=== PATIENT | female | born 2000 ===

== ENCOUNTER 2022-11-03 22:00 | Inpatient (IN) ==
--- NOTE | 2022-11-03 22:50 | Emergency Department Note ---
History of Present Illness General Chief complaint: Overdose (Intentional) Stated complaint: OVERDOSE Time Seen by Provider: 11/03/22 22:30 Source: patient and RN notes reviewed Mode of arrival: EMS Limitations: no limitations History of Present Illness This patient is 22-year-old female who, and came in after taking intentional overdose. She tells me she took at 915 she took 25 pills which were Advil but also some Tylenol. She does not know what doses they were. She adamantly denies any other medications. Denies drugs or alcohol. She did not vomit she has minimal nausea. When asked her why she took it she says "I do not know". She does have a history of overdose 4 years ago when she took some pain medication. Denies . no chest pain or shortness breath or abdominal pain. She has had a lot of stress with school recently. She does vape. She is not on any other medications besides a migraine medication which she denies she took any extra tonight. Home Medications Medication Instructions Recorded Confirmed Type Unknown Med For Migraine Rankin 1 dose PO DIRECTED PRN Migraine 11/04/22 11/04/22 History Headache Allergies Allergy/AdvReac Type Severity Reaction Status Date / Time No Known Allergies Allergy Verified 11/03/22 23:02 Past Med/Surg History Social History Smoking Status: Current every day smoker Preferred Language: Citizen Of [place] Feels Safe at Home: Yes Gender Identity: Female Immunizations: Past medical historymigraines. Iron deficient. 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 Review of Systems A total of 10 systems reviewed and were otherwise negative Physical Exam Vital Signs Vital Signs - 24 hr 11/03/22 22:07 11/03/22 22:07 11/03/22 22:39 Temperature 36.9 C Temperature Source Temporal Artery Scan Pulse Rate 71 Respiratory Rate 20 Blood Pressure 124/87 Blood Pressure Mean 99 Pulse Oximetry 99 98 98 Oxygen Delivery Method Room Air Room Air Room Air Sepsis Recent Fever Within 48 Hours No Sepsis New/Unexplained Change in Mental Status N/A Sepsis Action Taken by Nursing No Action Required 11/03/22 22:55 11/03/22 22:55 11/03/22 23:00 Temperature Temperature Source Pulse Rate 75 74 77 Respiratory Rate 18 18 Blood Pressure Blood Pressure Mean Pulse Oximetry 100 100 Oxygen Delivery Method Room Air Room Air Sepsis Recent Fever Within 48 Hours Sepsis New/Unexplained Change in Mental Status Sepsis Action Taken by Nursing 11/03/22 23:30 11/04/22 00:00 11/04/22 00:30 Temperature Temperature Source Pulse Rate 74 77 63 Respiratory Rate 16 22 20 Blood Pressure Blood Pressure Mean Pulse Oximetry 100 100 98 Oxygen Delivery Method Room Air Room Air Room Air Sepsis Recent Fever Within 48 Hours Sepsis New/Unexplained Change in Mental Status Sepsis Action Taken by Nursing 11/04/22 00:36 11/04/22 01:00 Temperature Temperature Source Pulse Rate 75 64 Respiratory Rate 22 24 Blood Pressure 122/83 117/69 Blood Pressure Mean 96 85 Pulse Oximetry 100 99 Oxygen Delivery Method Room Air Room Air Sepsis Recent Fever Within 48 Hours Sepsis New/Unexplained Change in Mental Status Sepsis Action Taken by Nursing General: Well developed well nourished slender young female who appears in no acute distress, breathing comfortably on room air. Normal speech. She has poor eye contact. HEENT: Normal cephalic atraumatic. Pupils are equal round and reactive to light. Sclera are anicteric. Extraocular movements are intact. Oropharynx is pink with moist mucous membranes. No swelling of the mouth lips or tongue. Neck: Supple with a midline trachea. No meningeal signs or stiffness, no JVD or bruits. No Stridor. Chest: Clear to auscultation bilaterally. No wheezes or rhonchi. No increased work of breathing. Heart: Regular rate and rhythm without murmurs or gallops. Abdomen: Soft nontender, nondistended without rebound guarding or rigidity. Extremities: No cyanosis clubbing or edema. No calf tenderness or assymetry Spine/Back. Non tender to palpation. No CVA tenderness Skin: Good turgor without rashes. Neurologic exam: Cranial nerves two through 12 are intact. Motor and sensation are intact and symmetrical throughout. Psych: Her affect is flattened but answers questions appropriately. She answers vaguely when asked why she took this overdose. Medical Decision Making Differential Diagnosis Overdose, depression, suicidal ideations, anxiety, toxicologic, metabolic Medical Records Attestation: I reviewed the patient's medical records. Home Medications Current Medication List: was personally reviewed by me Laboratory Data Attestation: I reviewed the patient's lab results. 11/03/22 23:06 11/03/22 23:06 Lab Results 11/03/22 11/03/22 11/03/22 Range/Units 22:37 22:37 22:50 WBC (4.8-10.8) K/ul RBC (4.20-5.40) M/uL Hgb (12.0-16.0) g/dl Hct (37.0-47.0) % MCV (80.0-100.0) fL MCH (25.0-34.0) pg MCHC (32.0-36.0) g/dL RDW Std Deviation (36.4-46.3) fL RDW Coeff of Sky (11.5-14.5) % Plt Count (130-400) K/uL MPV (9.4-12.4) fL Immature Gran % (Auto) % Neut % (Auto) % Lymph % (Auto) % [place] % (Auto) % Eos % (Auto) % Baso % (Auto) % Neut # (Auto) (1.40-6.50) K/uL Lymph # (Auto) (1.2-3.4) K/uL [place] # (Auto) (0.11-0.59) K/uL Eos # (Auto) (0-0.50) K/uL Baso # (Auto) (0-0.2) K/uL Immature Gran # (Auto) (0.01-0.20) K/uL PT (9.0-12.0) Seconds INR (0.9-1.1) APTT (21.0-31.0) Seconds PTT Ratio Sodium (136-145) mmol/L Potassium (3.5-5.1) mmol/L Chloride (98-107) mmol/L Carbon Dioxide (21-32) mmol/L Anion Gap (3-11) BUN (6-23) mg/dl Creatinine (0.6-1.2) mg/dl Est Cr Clr Drug Dosing ml/min Est GFR ( Amer) ml/min Est GFR (Non-Af Amer) ml/min BUN/Creatinine Ratio (10-20) Glucose (70-99(Fasting)) mg/dl Calcium (8.6-10.3) mg/dl Magnesium (1.7-2.4) mg/dl Total Bilirubin (0.2-1.0) mg/dl AST (13-39) U/L ALT (7-52) U/L Alkaline Phosphatase (34-104) U/L Total Protein (6.0-8.3) gm/dl Albumin (3.4-5.0) gm/dl Globulin (2.5-4.0) gm/dl Albumin/Globulin Ratio (0.9-2) HCG, Qual (Negative) Urine Color Yellow Urine Appearance Clear (Clear) Urine pH 5.5 (4.5-7.5) Ur Specific [place] 1.021 (1.000-1.030) Urine Protein Negative (Negative) Urine Glucose (UA) Negative (Negative) Urine Ketones Negative (Negative) Urine Blood 3+ H (Negative) Urine Nitrite Negative (Negative) Urine Bilirubin Negative (Negative) Urine Urobilinogen Negative (Negative) Ur Leukocyte Esterase Negative (Negative) Urine WBC (Auto) 1-5 (0-5) /hpf Urine RBC (Auto) 10-30 H (0-4) /hpf U Hyaline Cast (Auto) 1-5 (0-5) /lpf U Epithel Cells (Auto) >30 H (0-5) /lpf Urine Bacteria (Auto) Negative (Negative) Salicylates (3.0-30) mg/dl Urine Opiates Screen Neg (Neg) Ur Methadone, Qual Neg (Neg) Acetaminophen (10-30) ug/ml Urine Barbiturates Neg (Neg) Ur Phencyclidine (PCP) Neg (Neg) U Amphetamin/Meth Scrn Neg (Neg) MDMA (Ecstasy) Screen Neg (Neg) U Benzodiazepines Scrn Neg (Neg) Ur Cocaine Metabolite Neg (Neg) U Marijuana (THC) Screen Pos H (Neg) Ethyl Alcohol mg/dL (<10.0) mg/dl SARS-CoV-2, RNA, NAAT NEGATIVE (NEGATIVE) 11/03/22 11/03/22 11/03/22 Range/Units 23:06 23:06 23:06 WBC 6.44 (4.8-10.8) K/ul RBC 5.17 (4.20-5.40) M/uL Hgb 13.3 (12.0-16.0) g/dl Hct 42.2 (37.0-47.0) % MCV 81.6 (80.0-100.0) fL MCH 25.7 (25.0-34.0) pg MCHC 31.5 L (32.0-36.0) g/dL RDW Std Deviation 39.8 (36.4-46.3) fL RDW Coeff of Sky 13.5 (11.5-14.5) % Plt Count 259 (130-400) K/uL MPV 10.6 (9.4-12.4) fL Immature Gran % (Auto) 0.2 % Neut % (Auto) 49.7 % Lymph % (Auto) 35.6 % [place] % (Auto) 9.9 % Eos % (Auto) 4.3 % Baso % (Auto) 0.3 % Neut # (Auto) 3.20 (1.40-6.50) K/uL Lymph # (Auto) 2.29 (1.2-3.4) K/uL [place] # (Auto) 0.64 H (0.11-0.59) K/uL Eos # (Auto) 0.28 (0-0.50) K/uL Baso # (Auto) 0.02 (0-0.2) K/uL Immature Gran # (Auto) 0.01 (0.01-0.20) K/uL PT 10.9 (9.0-12.0) Seconds INR 1.0 (0.9-1.1) APTT 27.6 (21.0-31.0) Seconds PTT Ratio 1.0 Sodium 135 L (136-145) mmol/L Potassium 3.6 (3.5-5.1) mmol/L Chloride 103 (98-107) mmol/L Carbon Dioxide 27 (21-32) mmol/L Anion Gap 5 (3-11) BUN 10 (6-23) mg/dl Creatinine 0.82 (0.6-1.2) mg/dl Est Cr Clr Drug Dosing 120.9 ml/min Est GFR ( Amer) 119.4 ml/min Est GFR (Non-Af Amer) 103.0 ml/min BUN/Creatinine Ratio 12.2 (10-20) Glucose 85 (70-99(Fasting)) mg/dl Calcium 9.2 (8.6-10.3) mg/dl Magnesium 1.8 (1.7-2.4) mg/dl Total Bilirubin 0.3 (0.2-1.0) mg/dl AST 17 (13-39) U/L ALT 8 (7-52) U/L Alkaline Phosphatase 45 (34-104) U/L Total Protein 7.8 (6.0-8.3) gm/dl Albumin 4.0 (3.4-5.0) gm/dl Globulin 3.8 (2.5-4.0) gm/dl Albumin/Globulin Ratio 1.1 (0.9-2) HCG, Qual (Negative) Urine Color Urine Appearance (Clear) Urine pH (4.5-7.5) Ur Specific [place] (1.000-1.030) Urine Protein (Negative) Urine Glucose (UA) (Negative) Urine Ketones (Negative) Urine Blood (Negative) Urine Nitrite (Negative) Urine Bilirubin (Negative) Urine Urobilinogen (Negative) Ur Leukocyte Esterase (Negative) Urine WBC (Auto) (0-5) /hpf Urine RBC (Auto) (0-4) /hpf U Hyaline Cast (Auto) (0-5) /lpf U Epithel Cells (Auto) (0-5) /lpf Urine Bacteria (Auto) (Negative) Salicylates (3.0-30) mg/dl Urine Opiates Screen (Neg) Ur Methadone, Qual (Neg) Acetaminophen (10-30) ug/ml Urine Barbiturates (Neg) Ur Phencyclidine (PCP) (Neg) U Amphetamin/Meth Scrn (Neg) MDMA (Ecstasy) Screen (Neg) U Benzodiazepines Scrn (Neg) Ur Cocaine Metabolite (Neg) U Marijuana (THC) Screen (Neg) Ethyl Alcohol mg/dL (<10.0) mg/dl SARS-CoV-2, RNA, NAAT (NEGATIVE) 11/03/22 11/03/22 11/03/22 Range/Units 23:06 23:06 23:06 WBC (4.8-10.8) K/ul RBC (4.20-5.40) M/uL Hgb (12.0-16.0) g/dl Hct (37.0-47.0) % MCV (80.0-100.0) fL MCH (25.0-34.0) pg MCHC (32.0-36.0) g/dL RDW Std Deviation (36.4-46.3) fL RDW Coeff of Sky (11.5-14.5) % Plt Count (130-400) K/uL MPV (9.4-12.4) fL Immature Gran % (Auto) % Neut % (Auto) % Lymph % (Auto) % [place] % (Auto) % Eos % (Auto) % Baso % (Auto) % Neut # (Auto) (1.40-6.50) K/uL Lymph # (Auto) (1.2-3.4) K/uL [place] # (Auto) (0.11-0.59) K/uL Eos # (Auto) (0-0.50) K/uL Baso # (Auto) (0-0.2) K/uL Immature Gran # (Auto) (0.01-0.20) K/uL PT (9.0-12.0) Seconds INR (0.9-1.1) APTT (21.0-31.0) Seconds PTT Ratio Sodium (136-145) mmol/L Potassium (3.5-5.1) mmol/L Chloride (98-107) mmol/L Carbon Dioxide (21-32) mmol/L Anion Gap (3-11) BUN (6-23) mg/dl Creatinine (0.6-1.2) mg/dl Est Cr Clr Drug Dosing ml/min Est GFR ( Amer) ml/min Est GFR (Non-Af Amer) ml/min BUN/Creatinine Ratio (10-20) Glucose (70-99(Fasting)) mg/dl Calcium (8.6-10.3) mg/dl Magnesium (1.7-2.4) mg/dl Total Bilirubin (0.2-1.0) mg/dl AST (13-39) U/L ALT (7-52) U/L Alkaline Phosphatase (34-104) U/L Total Protein (6.0-8.3) gm/dl Albumin (3.4-5.0) gm/dl Globulin (2.5-4.0) gm/dl Albumin/Globulin Ratio (0.9-2) HCG, Qual Negative (Negative) Urine Color Urine Appearance (Clear) Urine pH (4.5-7.5) Ur Specific [place] (1.000-1.030) Urine Protein (Negative) Urine Glucose (UA) (Negative) Urine Ketones (Negative) Urine Blood (Negative) Urine Nitrite (Negative) Urine Bilirubin (Negative) Urine Urobilinogen (Negative) Ur Leukocyte Esterase (Negative) Urine WBC (Auto) (0-5) /hpf Urine RBC (Auto) (0-4) /hpf U Hyaline Cast (Auto) (0-5) /lpf U Epithel Cells (Auto) (0-5) /lpf Urine Bacteria (Auto) (Negative) Salicylates < 3.0 L (3.0-30) mg/dl Urine Opiates Screen (Neg) Ur Methadone, Qual (Neg) Acetaminophen < 3 L (10-30) ug/ml Urine Barbiturates (Neg) Ur Phencyclidine (PCP) (Neg) U Amphetamin/Meth Scrn (Neg) MDMA (Ecstasy) Screen (Neg) U Benzodiazepines Scrn (Neg) Ur Cocaine Metabolite (Neg) U Marijuana (THC) Screen (Neg) Ethyl Alcohol mg/dL < 10.0 (<10.0) mg/dl SARS-CoV-2, RNA, NAAT (NEGATIVE) 11/04/22 Range/Units 01:30 WBC (4.8-10.8) K/ul RBC (4.20-5.40) M/uL Hgb (12.0-16.0) g/dl Hct (37.0-47.0) % MCV (80.0-100.0) fL MCH (25.0-34.0) pg MCHC (32.0-36.0) g/dL RDW Std Deviation (36.4-46.3) fL RDW Coeff of Sky (11.5-14.5) % Plt Count (130-400) K/uL MPV (9.4-12.4) fL Immature Gran % (Auto) % Neut % (Auto) % Lymph % (Auto) % [place] % (Auto) % Eos % (Auto) % Baso % (Auto) % Neut # (Auto) (1.40-6.50) K/uL Lymph # (Auto) (1.2-3.4) K/uL [place] # (Auto) (0.11-0.59) K/uL Eos # (Auto) (0-0.50) K/uL Baso # (Auto) (0-0.2) K/uL Immature Gran # (Auto) (0.01-0.20) K/uL PT (9.0-12.0) Seconds INR (0.9-1.1) APTT (21.0-31.0) Seconds PTT Ratio Sodium (136-145) mmol/L Potassium (3.5-5.1) mmol/L Chloride (98-107) mmol/L Carbon Dioxide (21-32) mmol/L Anion Gap (3-11) BUN (6-23) mg/dl Creatinine (0.6-1.2) mg/dl Est Cr Clr Drug Dosing ml/min Est GFR ( Amer) ml/min Est GFR (Non-Af Amer) ml/min BUN/Creatinine Ratio (10-20) Glucose (70-99(Fasting)) mg/dl Calcium (8.6-10.3) mg/dl Magnesium (1.7-2.4) mg/dl Total Bilirubin (0.2-1.0) mg/dl AST (13-39) U/L ALT (7-52) U/L Alkaline Phosphatase (34-104) U/L Total Protein (6.0-8.3) gm/dl Albumin (3.4-5.0) gm/dl Globulin (2.5-4.0) gm/dl Albumin/Globulin Ratio (0.9-2) HCG, Qual (Negative) Urine Color Urine Appearance (Clear) Urine pH (4.5-7.5) Ur Specific [place] (1.000-1.030) Urine Protein (Negative) Urine Glucose (UA) (Negative) Urine Ketones (Negative) Urine Blood (Negative) Urine Nitrite (Negative) Urine Bilirubin (Negative) Urine Urobilinogen (Negative) Ur Leukocyte Esterase (Negative) Urine WBC (Auto) (0-5) /hpf Urine RBC (Auto) (0-4) /hpf U Hyaline Cast (Auto) (0-5) /lpf U Epithel Cells (Auto) (0-5) /lpf Urine Bacteria (Auto) (Negative) Salicylates (3.0-30) mg/dl Urine Opiates Screen (Neg) Ur Methadone, Qual (Neg) Acetaminophen < 3 L (10-30) ug/ml Urine Barbiturates (Neg) Ur Phencyclidine (PCP) (Neg) U Amphetamin/Meth Scrn (Neg) MDMA (Ecstasy) Screen (Neg) U Benzodiazepines Scrn (Neg) Ur Cocaine Metabolite (Neg) U Marijuana (THC) Screen (Neg) Ethyl Alcohol mg/dL (<10.0) mg/dl SARS-CoV-2, RNA, NAAT (NEGATIVE) Imaging Data Attestation: I personally reviewed and interpreted this imaging study as follows: ECG Data Attestation: I personally reviewed and interpreted this ECG as follows: Indication: + toxicologic Rate (beats per minute): 77 Rhythm: + normal sinus ECG Intervals/blocks: + Normal QRS, + Normal QT and + Normal UT ECG [place]: + Normal ECG ST segments: + Normal ST segments ECG Findings: no PACs or no PVCs MDM Narrative This patient comes in as described above. She took an overdose at approximately 9:15 PM. That was over an hour prior to arrival. She took Advil but also said there is some Tylenol in it she is not sure what doses they were. She has stable vital signs she is awake alert and orient x3 she answers all questions appropriately her at affect is flattened. IV access was established and she was hydrated with 1 L IV normal saline bolus. she was placed on a monitor car operator full toxicologic/metabolic work-up was obtained. EKG does not show any prolonged QT or prolonged QRS. She has normal intervals. She has no white count or fever discussed infection. she has no significant electrolyte or metabolic abnormalities. Alcohol was negative. She has normal renal function and liver function. Coagulation studies were normal. Aspirin and Tylenol levels were negative. The Tylenol level was less than 4 hours and therefore I ordered a 4-hour level 1 to be done at 1230. She estimates she took the pills between 915 and 930. I did on her and told her this is the plan and she was cooperative. I also told her that if the 4-hour level looks good she will be medically cleared and will have to be seen by mental health she also acknowledges this as well. Her 4-hour Tylenol was also less than 3. The case management team tells me that when they talk to the police they did not find any Tylenol bottles at the scene just ibuprofen. The patient has remained stable and she is asymptomatic and looks well. She has been medically cleared. She was a further evaluated by our psychiatric case management team. She will be s igned out for Dr. Gonzalez at shift change we will follow-up on the recommendations. Continuous cardiac monitoring: Orders placed in EMR for continuous cardiac monitoring: Upon my evaluation she was noted to be in normal sinus rhythm with a rate of 70 Impression & Plan Drug overdose, Not currently , Suicidal ideations, Intentional overdose, Lab test negative for COVID-19 virus Discharge Plan Visit Data Chief Complaint: Overdose (Intentional) Stated Complaint: OVERDOSE ED Provider: Jt Hubbard Discharge Problem: Drug overdose, Not currently , Suicidal ideations, Intentional overdose, Lab test negative for COVID-19 virus Forms Stand Alone Forms: My [facility], Suicide Prevention Resources Prescriptions Prescriptions: No Action Unknown Med For Migraine Rankin 1 dose PO DIRECTED PRN (Reason: Migraine Headache) Rx Instructions: PT DID NOT KNOW NAME OR DOSE, UNABLE TO VERIFY AT THIS TIME. Referrals Referrals: PCP,NO [Primary Care Provider] -
[2022-11-03 23:50] LABS: Albumin Globulin Ratio 1.1 (0.9-2); BUN Creatinine Ratio 12.2 (10-20); Bilirubin,Total 0.3 mg/dl (0.2-1.0); Calcium 9.2 mg/dl (8.6-10.3); Creatinine Clr Calc Pharmacy 120.9 ml/min; Est GFR (African American) 119.4 ml/min; Globulin 3.8 gm/dl (2.5-4.0); Magnesium 1.8 mg/dl (1.7-2.4); Potassium 3.6 mmol/L (3.5-5.1); Total Protein 7.8 gm/dl (6.0-8.3)
[2022-11-03 23:53] LABS: Pregnancy Test, Serum Negative (Negative)
[2022-11-04] LABS: Basophils # (auto) 0.02 K/uL (0-0.2); Basophils % (auto) 0.3 %; Eosinophils # (auto) 0.28 K/uL (0-0.50); Eosinophils % (auto) 4.3 %; Hematocrit (blood only) 42.2 % (37.0-47.0); Hemoglobin 13.3 g/dl (12.0-16.0); Immature Granulocytes # (auto) 0.01 K/uL (0.01-0.20); Immature Granulocytes % (auto) 0.2 %; Lymphocytes # (auto) 2.29 K/uL (1.2-3.4); Lymphocytes % (auto) 35.6 %; Mean Corpuscular Hemoglobin 25.7 pg (25.0-34.0); Mean Corpuscular Hgb Conc 31.5 g/dL (32.0-36.0); Mean Corpuscular Volume 81.6 fL (80.0-100.0); Mean Platelet Volume 10.6 fL (9.4-12.4); Monocytes # (auto) 0.64 K/uL (0.11-0.59); Monocytes % (auto) 9.9 %; Neutrophils % (auto) 49.7 %; Platelet Count 259 K/uL (130-400); RDW Coefficient of Variation 13.5 % (11.5-14.5); RDW Standard Deviation 39.8 fL (36.4-46.3); Red Blood Count 5.17 M/uL (4.20-5.40); White Blood Count 6.44 K/ul (4.8-10.8)
[2022-11-04 00:14] LABS: Partial Thromboplastin Time 27.6 Seconds (21.0-31.0); Prothrombin Time 10.9 Seconds (9.0-12.0)
[2022-11-04 00:15] LABS: Amphetamines+Metham, Urine Neg (Neg); Barbiturates, Urine Neg (Neg); Benzodiazepine, Urine Neg (Neg); Cocaine, Urine Neg (Neg); MDMA (Ecstacy), Urine Neg (Neg); Methadone, Urine Neg (Neg); Opiate, Urine Neg (Neg); Phencyclidine, Urine Neg (Neg)
[2022-11-04 00:26] LABS: Appearance Urine Clear (Clear); Bacteria Urine Automated Negative (Negative); Bilirubin Urine Negative (Negative); Blood Urine 3+ (Negative); Color Urine Yellow; Epithelial Cell Urine Auto >30 /lpf (0-5); Glucose Urine UA Negative (Negative); Ketones Urine Negative (Negative); Leukocyte Esterase Urine Negative (Negative); Nitrite Urine Negative (Negative); Protein Urine Negative (Negative); Specific Gravity Urine 1.021 (1.000-1.030); Urobilinogen Urine Negative (Negative); pH Urine 5.5 (4.5-7.5)
[2022-11-04 00:48] LABS: Acetaminophen < 3 ug/ml (10-30); Salicylate < 3.0 mg/dl (3.0-30)
--- NOTE | 2022-11-04 06:33 | Emergency Department Note ---
ED Visit Note I received this patient in signout at the change of shift from Dr. Hubbard. Patient is pending a mental health bed search. Case has been signed out to Dr. Lofton at the change of shift pending final disposition. .
--- NOTE | 2022-11-04 09:27 | Emergency Department Note ---
ED Visit Note The patient was originally placed in observation on 11/03/2022 at 2200 hrs. to establish medical clearance and determine the patients ultimate disposition. It had been determined that the patient required inpatient psychiatric care and we have been awaiting an available bed. That bed has now been obtained at [address]. and the patient is being transferred out by secure transport. I had a [id number] visit with the patient on the day of discharge. Total time in the discharge of this patient was 11-1/2 hours. .
[2022-11-04] MEDS ORDERED: SODIUM CHLORIDE 0.65% NA SOLN 45 ML (OCEAN) PRN (12:43)
[2022-11-04] MEDS ORDERED: BISMUTH SUBSALICYLATE LIQD 236 ML PO PRN (12:43)
[2022-11-04] MEDS ORDERED: ACETAMINOPHEN 325 MG TAB PO PRN (12:43)
[2022-11-04] MEDS ORDERED: hydrOXYzine HCl 25 MG TAB PO PRN ×2 (12:43)
[2022-11-04] MEDS ORDERED: ALUMINUM/MAGNESIUM SUSP 30 ML UDC PO PRN (12:43)
[2022-11-04] MEDS ORDERED: MAGNESIUM HYDROXIDE SUSP 30 ML UDC PO PRN (12:43)
--- NOTE | 2022-11-04 15:07 | History & Physical ---
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 Diagnostically consistent with unspecified depression, current symptoms do not seem to rise to level of major depressive disorder though unclear if possibly some minimization due to not wanting to be in the hospital and certainly met criteria for MDD as recently as September; seems major depressive symptoms had been improving but flared in context of academic pressures of final exam difficulty. She is currently deemed in need of psychiatric hospitalization for diagnostic clarification, safety and stabilization, medication management and development of further coping skills. She signed a 72 hour notice shortly after admission. Discussed medication treatment options in detail including SSRIs and Wellbutrin. Discussed risks, benefits and alternatives. She is going to consider the options and discuss them with her father but is leaning toward considering Wellbutrin. Reviewed side effects for both SSRIs and Wellbutrin. (1) Depression, unspecified: (2) Suicide attempt by drug ingestion: Plan 11/04/2022: The patient was admitted to the [facility] ([facility] mental health unit) on q15 min checks (behavioral with suicide precautions) for safety. The patient will participate in group, recreational, and milieu therapies and will be offered additional individual and family sessions as clinically appropriate. -Consider SSRI vs Wellbutrin initiation tomorrow morning after she decides what medication she would like to try -Confirmed via [facility] pharmacy prior to admission topirimate 75mg daily for migraines, last filled 04/2023 for 90 tabs; states she hasn't been taking this recently Inventory Assets Strengths: supportive relationships, willing to get treatment Needs: safety and stabilization, medication adjustment, additional coping skills, increased outpatient services Suicide Risk Level Suicide Risk Level: High-Moderate (q15 min suicide checks) (High-Moderate due to severe depression with SI with plan prior to admission but feels safe in the hospital, able to safety contract and agrees to let nursing/staff know should they develop plan, intent or feel unable to remain safe. ) Risk Factors Assessment Do You Have Access To A Gun?: No Mental Health Diagnoses: Yes Previous Attempt: Yes Protective Factors Assessment Employed: No Stable Relationships: Yes Supportive Family: Yes Psychiatric History Identifying Data HAYDEN CONRAD is a 22-year-old woman and international [employer] student from [place] who currently lives in on-campus dorms, has no formal psychiatric history, and was admitted on 11/04/22 09:33 on a 201 voluntary commitment for suicide attempt via overdose. Chief Complaint "I was triggered". History of Present Illness Hayden called 911 and was brought to the hospital after taking an overdose of acetaminophen and ibuprofen of approximately 25 tabs of unknown strength and unknown combination. She states this was due to recent psychosocial stressors including academic difficulty this semester and not liking [employer] or feeling as though it has been a good fit for her. She feels the suicide attempt was impulsive and occurred after "a trigger" of learning via online portal that she had failed a final exam in one of her courses. She already had a headache and had taken some over the counter medications (Advil and Tylenol) to treat this and impulsively decided to take more with the thought that if she then so be it. However, after taking about 25 of the tabs she got worried and called 911 to get help. She endorses current depressive symptoms including decreased energy, variable motivation but denies anhedonia, no changes in concentration, no sleep changes (8 hours per night), stable appetite and no recent hopelessness/helplessness nor self-guilt. However, she reports she was depressed from July-September which lead to missing class, no motivation, social isolation, decreased appetite and significant academic difficulty and fell behind in her classes. She denies any current or history of anxiety or panic attacks. She endorses PTSD symptoms of chronic sense of detachment since past trauma but denies any sleep terrors/ flashbacks/avoidance/emotional lability/hypervigilance . She is not currently prescribed any psychiatric medications. Psychiatric ROS notable for no current nor history of symptoms of carla, psychosis, OCD, eating disorder nor self-harm. Past Psychiatric History Current Psychiatric Diagnosis: MDD Outpatient Services: therapist Josefa via [employer] had been seeing weekly until mid-September Previous Psych Admissions: n/a Do You Have Access To A Gun?: No History of Previous Suicide Attempt: Yes Describe Attempts in the Past: OD via over the counter medications 4 years ago was seen in the ED Past Medication Trials: none Past Head Trauma/Neuro History History of Concussion/Seizure: No Allergies Allergy/AdvReac Type Severity Reaction Status Date / Time No Known Allergies Allergy Verified 11/04/22 14:52 Home Medications Medication Instructions Recorded Confirmed Type Unknown Med For Migraine Rank[place] 1 dose PO DIRECTED PRN Migraine 11/04/22 11/04/22 History Headache Family History Family History of: Depression (maternal side) and Anxiety (maternal side) Alcohol History Hx of Alcohol Use Over the Past 12 Months: No AUDIT Total Score: 3 States she doesn't drink alcohol Smoking Use Have You Smoked or Used Tobacco Products in the Last 30 Days: No tobacco type: e-cigarettes Smoking Status: Current some day smoker (for the last two weeks) Substance History Hx of Prescription Med Misuse Over the Past 12 Months: No Hx of Over the Counter Med Misuse Over the Past 12 Months: No Hx of Inhalent Misuse Over the Past 12 Months: No Hx of Organic Substance Use Over the Past 12 Months: Yes (weekly THC via smoking) Hx of Illegal Substances/Street Drug Use Over Past 12 Months: No Problems as a Result of Past Substance Use: None Identified uses cannabis weekly, states there is nothing she likes about it, doesn't like potential health effects Personal History Living Arrangements: Dorm Childhood: Raised in [place], parents are and both live there. She has two older sisters. 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 ) Marital Status: Single Number Of Children: n/a Beliefs That Will Affect Care: None Current Legal Problems: No Hx Legal Problems: No Hx Traumatic Life Events: Yes Patient History Medical History Migraine Social History (Updated 11/04/22 @ 14:54 by Saige Up MD) Smoking Status: Current some day smoker (for the last two weeks) Tobacco Type: E-cigarettes / Vaping Preferred Language: Faroese Communication Ability: Effective Towel Sorter Required: No Beliefs That Will Affect Care: None Feels Safe at Home: Yes Gender Identity: Female Assistive Devices: None Review of Systems Review of Systems: All systems reviewed & are unremarkable except as noted in HPI & below Physical Exam Psychiatric: Orientation: alert and oriented x 3 Apperance: appropriately dressed and appropriately groomed Eye Contact: good eye contact Motor Behavior: no abnormal motor movements Speech: normal rate/rhythm/volume of speech Affect: + constricted affect Mood: + depressed mood and + irritable mood Thought Process: goal directed thought process Thought Content: reality based without delusions Suicidal Thoughts: denies suicidal thoughts (but s/p overdose), denies suicidal plan and denies suicidal intent Homicidal Thoughts: denies homicidal thoughts Hallucinations: no auditory hallucinations and no visual hallucinations Cognition: recent memory grossly intact, remote memory grossly intact, attention grossly intact and language grossly intact Estimated Intelligence: consistent with education level Insight: + fair insight Judgment: + limited judgement Vital Signs (Past 24 Hours): Last Vital Signs Temp 36.8 C 11/04/22 12:31 Pulse 65 11/04/22 12:31 Resp 16 11/04/22 12:31 BP 124/85 11/04/22 12:31 Pulse Ox 100 11/04/22 12:31 O2 Del Method Room Air 11/04/22 12:31 Exam Statement: A physical exam was performed in the ED by Dr. Hubbard for the purposes of medical clearance. I accept that physical as correct and adequate for the purposes of the inpatient physical exam. Results & Data ([facility]) Laboratory Results Laboratory Results - last 24 hr 11/03/22 11/03/22 11/03/22 22:37 22:37 22:37 WBC RBC Hgb Hct MCV MCH MCHC RDW Std Deviation RDW Coeff of Sky Plt Count MPV Immature Gran % (Auto) Neut % (Auto) Lymph % (Auto) [place] % (Auto) Eos % (Auto) Baso % (Auto) Neut # (Auto) Lymph # (Auto) [place] # (Auto) Eos # (Auto) Baso # (Auto) Immature Gran # (Auto) PT INR APTT PTT Ratio Sodium Potassium Chloride Carbon Dioxide Anion Gap BUN Creatinine Est Cr Clr Drug Dosing Est GFR ( Amer) Est GFR (Non-Af Amer) BUN/Creatinine Ratio Glucose Calcium Magnesium Total Bilirubin AST ALT Alkaline Phosphatase Total Protein Albumin Globulin Albumin/Globulin Ratio HCG, Qual Urine Color Yellow Urine Appearance Clear Urine pH 5.5 Ur Specific [place] 1.021 Urine Protein Negative Urine Glucose (UA) Negative Urine Ketones Negative Urine Blood 3+ H Urine Nitrite Negative Urine Bilirubin Negative Urine Urobilinogen Negative Ur Leukocyte Esterase Negative Urine WBC (Auto) 1-5 Urine RBC (Auto) 10-30 H U Hyaline Cast (Auto) 1-5 U Epithel Cells (Auto) >30 H Urine Bacteria (Auto) Negative Salicylates Urine Opiates Screen Neg Ur Methadone, Qual Neg Acetaminophen Urine Barbiturates Neg Ur Phencyclidine (PCP) Neg U Amphetamin/Meth Scrn Neg MDMA (Ecstasy) Screen Neg U Benzodiazepines Scrn Neg Ur Cocaine Metabolite Neg U Marijuana (THC) Screen Pos H U Marijuana THC Carboxy Pending Drug Screen Comment Pending Ethyl Alcohol mg/dL SARS-CoV-2, RNA, NAAT 11/03/22 11/03/22 11/03/22 22:50 23:06 23:06 WBC 6.44 RBC 5.17 Hgb 13.3 Hct 42.2 MCV 81.6 MCH 25.7 MCHC 31.5 L RDW Std Deviation 39.8 RDW Coeff of Sky 13.5 Plt Count 259 MPV 10.6 Immature Gran % (Auto) 0.2 Neut % (Auto) 49.7 Lymph % (Auto) 35.6 [place] % (Auto) 9.9 Eos % (Auto) 4.3 Baso % (Auto) 0.3 Neut # (Auto) 3.20 Lymph # (Auto) 2.29 [place] # (Auto) 0.64 H Eos # (Auto) 0.28 Baso # (Auto) 0.02 Immature Gran # (Auto) 0.01 PT 10.9 INR 1.0 APTT 27.6 PTT Ratio 1.0 Sodium Potassium Chloride Carbon Dioxide Anion Gap BUN Creatinine Est Cr Clr Drug Dosing Est GFR ( Amer) Est GFR (Non-Af Amer) BUN/Creatinine Ratio Glucose Calcium Magnesium Total Bilirubin AST ALT Alkaline Phosphatase Total Protein Albumin Globulin Albumin/Globulin Ratio HCG, Qual Urine Color Urine Appearance Urine pH Ur Specific [place] Urine Protein Urine Glucose (UA) Urine Ketones Urine Blood Urine Nitrite Urine Bilirubin Urine Urobilinogen Ur Leukocyte Esterase Urine WBC (Auto) Urine RBC (Auto) U Hyaline Cast (Auto) U Epithel Cells (Auto) Urine Bacteria (Auto) Salicylates Urine Opiates Screen Ur Methadone, Qual Acetaminophen Urine Barbiturates Ur Phencyclidine (PCP) U Amphetamin/Meth Scrn MDMA (Ecstasy) Screen U Benzodiazepines Scrn Ur Cocaine Metabolite U Marijuana (THC) Screen U Marijuana THC Carboxy Drug Screen Comment Ethyl Alcohol mg/dL SARS-CoV-2, RNA, NAAT NEGATIVE 11/03/22 11/03/22 11/03/22 23:06 23:06 23:06 WBC RBC Hgb Hct MCV MCH MCHC RDW Std Deviation RDW Coeff of Sky Plt Count MPV Immature Gran % (Auto) Neut % (Auto) Lymph % (Auto) [place] % (Auto) Eos % (Auto) Baso % (Auto) Neut # (Auto) Lymph # (Auto) [place] # (Auto) Eos # (Auto) Baso # (Auto) Immature Gran # (Auto) PT INR APTT PTT Ratio Sodium 135 L Potassium 3.6 Chloride 103 Carbon Dioxide 27 Anion Gap 5 BUN 10 Creatinine 0.82 Est Cr Clr Drug Dosing 120.9 Est GFR ( Amer) 119.4 Est GFR (Non-Af Amer) 103.0 BUN/Creatinine Ratio 12.2 Glucose 85 Calcium 9.2 Magnesium 1.8 Total Bilirubin 0.3 AST 17 ALT 8 Alkaline Phosphatase 45 Total Protein 7.8 Albumin 4.0 Globulin 3.8 Albumin/Globulin Ratio 1.1 HCG, Qual Negative Urine Color Urine Appearance Urine pH Ur Specific [place] Urine Protein Urine Glucose (UA) Urine Ketones Urine Blood Urine Nitrite Urine Bilirubin Urine Urobilinogen Ur Leukocyte Esterase Urine WBC (Auto) Urine RBC (Auto) U Hyaline Cast (Auto) U Epithel Cells (Auto) Urine Bacteria (Auto) Salicylates < 3.0 L Urine Opiates Screen Ur Methadone, Qual Acetaminophen < 3 L Urine Barbiturates Ur Phencyclidine (PCP) U Amphetamin/Meth Scrn MDMA (Ecstasy) Screen U Benzodiazepines Scrn Ur Cocaine Metabolite U Marijuana (THC) Screen U Marijuana THC Carboxy Drug Screen Comment Ethyl Alcohol mg/dL SARS-CoV-2, RNA, NAAT 11/03/22 11/04/22 23:06 01:30 WBC RBC Hgb Hct MCV MCH MCHC RDW Std Deviation RDW Coeff of Sky Plt Count MPV Immature Gran % (Auto) Neut % (Auto) Lymph % (Auto) [place] % (Auto) Eos % (Auto) Baso % (Auto) Neut # (Auto) Lymph # (Auto) [place] # (Auto) Eos # (Auto) Baso # (Auto) Immature Gran # (Auto) PT INR APTT PTT Ratio Sodium Potassium Chloride Carbon Dioxide Anion Gap BUN Creatinine Est Cr Clr Drug Dosing Est GFR ( Amer) Est GFR (Non-Af Amer) BUN/Creatinine Ratio Glucose Calcium Magnesium Total Bilirubin AST ALT Alkaline Phosphatase Total Protein Albumin Globulin Albumin/Globulin Ratio HCG, Qual Urine Color Urine Appearance Urine pH Ur Specific [place] Urine Protein Urine Glucose (UA) Urine Ketones Urine Blood Urine Nitrite Urine Bilirubin Urine Urobilinogen Ur Leukocyte Esterase Urine WBC (Auto) Urine RBC (Auto) U Hyaline Cast (Auto) U Epithel Cells (Auto) Urine Bacteria (Auto) Salicylates Urine Opiates Screen Ur Methadone, Qual Acetaminophen < 3 L Urine Barbiturates Ur Phencyclidine (PCP) U Amphetamin/Meth Scrn MDMA (Ecstasy) Screen U Benzodiazepines Scrn Ur Cocaine Metabolite U Marijuana (THC) Screen U Marijuana THC Carboxy Drug Screen Comment Ethyl Alcohol mg/dL < 10.0 SARS-CoV-2, RNA, NAAT Current Inpatient Medications Current Inpatient Medications: Current Inpatient Medications Acetaminophen (Acetaminophen 325 Mg Tab) 650 mg PO Q4H PRN PRN Reason: Headache or Minor Fever Stop: 12/04/22 12:42 Al Hydrox/Mg Hydrox/Simethicone (Aluminum/Magnesium Susp 30 Ml Udc) 30 ml PO Q4H PRN PRN Reason: GI Upset Stop: 12/04/22 12:42 Bismuth Subsalicylate (Bismuth Subsalicylate Liqd 236 Ml) 15 ml PO PRN PRN PRN Reason: Loose Stool Stop: 12/04/22 12:42 Hydroxyzine HCl (Hydroxyzine Hcl 25 Mg Tab) 50 mg PO HSZ PRN PRN Reason: Insomnia Stop: 12/04/22 12:42 Hydroxyzine HCl (Hydroxyzine Hcl 25 Mg Tab) 25 mg PO Q4H PRN PRN Reason: Anxiety Stop: 12/04/22 12:42 Magnesium Hydroxide (Magnesium Hydroxide Susp 30 Ml Udc) 30 ml PO DAILY PRN PRN Reason: Constipation Stop: 12/04/22 12:42 Sodium Chloride (Sodium Chloride 0.65% Na Soln 45 Ml ([place])) 1 - 2 sprays NA PRN PRN PRN Reason: Nasal Dryness/Congestion Stop: 12/04/22 12:42
--- NOTE | 2022-11-04 19:35 | Electrocardiogram Report ---
Test Reason : Blood Pressure : / mmHG Vent. Rate : 077 BPM Atrial Rate : 077 BPM P-R Int : 192 ms QRS Dur : 088 ms QT Int : 370 ms P-R-T Axes : 057 083 063 degrees QTc Int : 418 ms Normal sinus rhythm Normal ECG No previous ECGs available Confirmed by Hasmukh Engel ([id number]) on 11/04/2022 7:34:57 PM Referred By: Confirmed By:Hasmukh Engel
--- NOTE | 2022-11-05 10:07 | Psychiatric Progress Note ---
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 Diagnostically consistent with unspecified depression, current symptoms do not seem to rise to level of major depressive disorder though unclear if possibly some minimization due to not wanting to be in the hospital and certainly met criteria for MDD as recently as September; seems major depressive symptoms had been improving but flared in context of academic pressures of final exam difficulty. She is currently deemed in need of psychiatric hospitalization for diagnostic clarification, safety and stabilization, medication management and development of further coping skills. She signed a 72 hour notice shortly after admission. 11/05/2022: Still with some irritability related to being in the hospital but denies depression nor SI today. Focused on returning home to [place] on Thursday. Discussed medication treatment options again. Discussed risks, benefits and alternatives. Patient would like to start and consented to escitalopram for depression.Reviewed side effects including but not limited to: GI, DUONG, sexual side effects, and counseled on black box warning of potential for emergence of or increased SI and need to let staff know should this occur or should they feel unsafe. Also discussed importance of seeking emergency care following discharge if this side effect occurs in the future. (1) Depression, unspecified: (2) Suicide attempt by drug ingestion: Plan 11/05/2022: Start escitalopram 10mg qd. 11/04/2022: The patient was admitted to the [facility] ([facility] mental [facility] unit) on q15 min checks (behavioral with suicide precautions) for safety. The patient will participate in group, recreational, and milieu therapies and will be offered additional individual and family sessions as clinically appropriate. -Consider SSRI vs Wellbutrin initiation tomorrow morning after she decides what medication she would like to try -Confirmed via [facility] pharmacy prior to admission topirimate 75mg daily for migraines, last filled 04/2023 for 90 tabs; states she hasn't been taking this recently Inventory Assets Strengths: supportive relationships, willing to get treatment Needs: safety and stabilization, medication adjustment, additional coping skills, increased outpatient services Suicide Risk Level Suicide Risk Level: Moderate (q15 min suicide checks) (depression with suicide attempt prior to admission but mood improving, denies SI and feels safe in the hospital, able to safety contract and agrees to let nursing/staff know should they develop plan, intent or feel unable to remain safe. ) Suicide Risk Level Comments: . Risk Factors Assessment Do You Have Access To A Gun?: No Mental Health Diagnoses: Yes Previous Attempt: Yes Protective Factors Assessment Employed: No Stable Relationships: Yes Supportive Family: Yes Interval History Identifying Information HAYDEN CONRAD is a 22-year-old woman and international [employer] student from [place] who currently lives in on-campus dorms, has no formal psychiatric history, and was admitted on 11/04/22 09:33 on a 201 voluntary commitment for suicide attempt via overdose. Chief Complaint "I'm a 9". Review of Systems Sleep Information Total Hours of Sleep: 5 Sleep Comments: Allowed to finish watching end of basketball game and went to bed Meal Information Percent Meal Consumed - Breakfast: 0 Percent Meal Consumed - Dinner: 0 Nutrition Comment: Subjective Subjective Patient was seen & assessed and interval progress reviewed with treatment team nursing and social work. Did not attend any groups last night. Today attended all groups. States her mood is good though bored with being in the hospital. Later in the day agreed to have family meeting her with father. Asked to start escitalopram and she received initial dose today. Physical Exam Psychiatric Orientation: alert and oriented x 3 Apperance: appropriately dressed and appropriately groomed Eye Contact: good eye contact Motor Behavior: no abnormal motor movements Speech: normal rate/rhythm/volume of speech Affect: + constricted affect Mood: + irritable mood Thought Process: goal directed thought process Thought Content: reality based without delusions Suicidal Thoughts: denies suicidal thoughts (but s/p overdose), denies suicidal plan and denies suicidal intent Homicidal Thoughts: denies homicidal thoughts Hallucinations: no auditory hallucinations and no visual hallucinations Cognition: recent memory grossly intact, remote memory grossly intact, attention grossly intact and language grossly intact Estimated Intelligence: consistent with education level Insight: + fair insight Judgment: + limited judgement Vital Signs (Past 24 Hours) Last Vital Signs Temp 36.6 C 11/05/22 06:37 Pulse 77 11/05/22 06:39 Resp 16 11/05/22 06:37 BP 108/78 11/05/22 06:39 Pulse Ox 100 11/04/22 12:31 O2 Del Method Room Air 11/04/22 12:31 Results & Data ([facility]) Current Inpatient Medications Current Inpatient Medications: Current Inpatient Medications Al Hydrox/Mg Hydrox/Simethicone (Aluminum/Magnesium Susp 30 Ml Udc) 30 ml PO Q4H PRN PRN Reason: GI Upset Stop: 12/04/22 12:42 Bismuth Subsalicylate (Bismuth Subsalicylate Liqd 236 Ml) 15 ml PO PRN PRN PRN Reason: Loose Stool Stop: 12/04/22 12:42 Hydroxyzine HCl (Hydroxyzine Hcl 25 Mg Tab) 50 mg PO HSZ PRN PRN Reason: Insomnia Stop: 12/04/22 12:42 Hydroxyzine HCl (Hydroxyzine Hcl 25 Mg Tab) 25 mg PO Q4H PRN PRN Reason: Anxiety Stop: 12/04/22 12:42 Magnesium Hydroxide (Magnesium Hydroxide Susp 30 Ml Udc) 30 ml PO DAILY PRN PRN Reason: Constipation Stop: 12/04/22 12:42 Sodium Chloride (Sodium Chloride 0.65% Na Soln 45 Ml ([place])) 1 - 2 sprays NA PRN PRN PRN Reason: Nasal Dryness/Congestion Stop: 12/04/22 12:42 Mental Health & Subst Abuse Tx Therapist Name of Therapist: [facility] Post Discharge Appointments Primary Care Physician Name Of Family Doctor/PCP: Joanna
[2022-11-05] MEDS: ESCITALOPRAM OXALATE 10 MG TAB PO SCH (10:23)
[2022-11-06] MEDS: ESCITALOPRAM OXALATE 10 MG TAB PO SCH (08:46)
[2022-11-06 11:31] LABS: Marijuana Quant, GCMS Urine 55 ng/mL (<5)
--- NOTE | 2022-11-06 14:47 | Discharge Summary ---
Date of Service November 06, 2022 History of Present Illness Eden called 911 and was brought to the hospital after taking an overdose of acetaminophen and ibuprofen of approximately 25 tabs of unknown strength and unknown combination. She states this was due to recent psychosocial stressors including academic difficulty this semester and not liking [employer] or feeling as though it has been a good fit for her. She feels the suicide attempt was impulsive and occurred after "a trigger" of learning via online portal that she had failed a final exam in one of her courses. She already had a headache and had taken some over the counter medications (Advil and Tylenol) to treat this and impulsively decided to take more with the thought that if she then so be it. However, after taking about 25 of the tabs she got worried and called 911 to get help. She endorses current depressive symptoms including decreased energy, variable motivation but denies anhedonia, no changes in concentration, no sleep changes (8 hours per night), stable appetite and no recent hopelessness/helplessness nor self-guilt. However, she reports she was depressed from July-September which lead to missing class, no motivation, social isolation, decreased appetite and significant academic difficulty and fell behind in her classes. She denies any current or history of anxiety or panic attacks. She endorses PTSD symptoms of chronic sense of detachment since past trauma but denies any sleep terrors/ flashbacks/avoidance/emotional lability/hypervigilance. She is not currently prescribed any psychiatric medications. Psychiatric ROS notable for no current nor history of symptoms of carla, psychosis, OCD, eating disorder nor self-harm. Physical Exam Vital Signs (Past 24 Hours) Last Vital Signs Temp 36.5 C 11/06/22 06:48 Pulse 67 11/06/22 06:48 Resp 16 11/06/22 06:48 BP 108/68 11/06/22 06:48 Pulse Ox 99 11/06/22 06:48 O2 Del Method Room Air 11/06/22 06:48 See admission H&P and DOD summary. Principal Diagnosis Major Depressive Disorder Psychiatric Data See daily stay summary. In short, patient was engaged with the social/therapeutic milieu of the unit, safety was maintained and the patient was cooperative with care. Medication changes included initiation of escitalopram 10mg daily and they tolerated this well. She had some nausea possibly associated with escitalopram, discussed that this tends to resolve within two weeks and option to try taking escitalopram with food before bed to help with nausea or option to reduce dose to 5mg for 1-2 weeks, if nausea persists, and then increasing back to 10mg daily once nausea resolves. A family session was held and safety plan was completed prior to discharge. Reviewed mobile apps that could be used for additional ways to have their safety plan and contacts easily available should thoughts of SI re-emerge in the future. Reviewed importance of seeking emergency care should SI intensify, worsen or should they feel unsafe in the future which they agree to do. On the day of discharge she stated her mood was "good" and remained future-oriented including packing her apartment, seeing her teammate, traveling home to [place] tomorrow, transferring to [place] in a few weeks and engaging in aftercare appointment with [facility] student care and advocac and working with [facility] and [place] athletics who will help her transition from her current team doctor to the new team doctor to manage her escitalopram and transitioning to a new therapist once in [place]. Day of Discharge Assessment Today the patient voices readiness for discharge. They note improvement in mood and anxiety. They deny thoughts of harm to self or others. Thoughts are organized and they are clinically improved from admission. There is no evidence of psychosis. They improved in the hospital with support and medication adjustments. They agree to take medications as prescribed and keep follow-up appointments. At the time of the discharge they are deemed to be stable and appropriate for outpatient level of care. They are not deemed to be at imminent risk of harm to self or others. They are aware of emergency and crisis services. Knows to call 911 or go to nearest emergency care center if in a crisis which cannot be handled as an outpatient. Transition of Care Transition Of Care Record: was reviewed with the patient Advance Directives Advance Directives Information Provided: Yes Advance Directives: No Mental Health Advance Directive: No Advance Directives on File: No Living Will: No Power of Medical Attendant: No Advance Directives Reason:: Declines as Mental Health Visit. Suicide Risk Level Suicide Risk Level Comments: Acute risk is low given improvement in mood and denial of SI, lack of access to lethal means, hopefulness and future-oriented. Chronic risk is low to moderate given a few non-modifiable risk factors: periods of impulsivity, prior attempt, emotional reactivity, childhood trauma, but also with protective factors including: employed/student athlete/full time babysitter student, good social support, sense of responsibility to family and social supports, outpatient care in place, positive coping skills, capacity to establish therapeutic alliance, willingness to engage with treatment, capacity for self-observation. Counseled on ways to reduce acute and chronic risk including engaging with outpatient providers, using safety plan if needed, utilizing supports, taking medication, and using coping skills. Modifiable risk factors of SI and depression were addressed during hospitalization through development of new coping skills, family meeting, safety planning, and medication adjustments. Risk Factors Assessment Do You Have Access To A Gun?: No Mental Health Diagnoses: Yes Previous Attempt: Yes Hopelessness: No Protective Factors Assessment Employed: No Stable Relationships: Yes Supportive Family: Yes Discharge Data Lab Results 11/03/22 11/03/22 11/03/22 22:37 22:37 22:37 WBC RBC Hgb Hct MCV MCH MCHC RDW Std Deviation RDW Coeff of Sky Plt Count MPV Immature Gran % (Auto) Neut % (Auto) Lymph % (Auto) [place] % (Auto) Eos % (Auto) Baso % (Auto) Neut # (Auto) Lymph # (Auto) [place] # (Auto) Eos # (Auto) Baso # (Auto) Immature Gran # (Auto) PT INR APTT PTT Ratio Sodium Potassium Chloride Carbon Dioxide Anion Gap BUN Creatinine Est Cr Clr Drug Dosing Est GFR ( Amer) Est GFR (Non-Af Amer) BUN/Creatinine Ratio Glucose Calcium Magnesium Total Bilirubin AST ALT Alkaline Phosphatase Total Protein Albumin Globulin Albumin/Globulin Ratio HCG, Qual Urine Color Yellow Urine Appearance Clear Urine pH 5.5 Ur Specific Baldwin 1.021 Urine Protein Negative Urine Glucose (UA) Negative Urine Ketones Negative Urine Blood 3+ H Urine Nitrite Negative Urine Bilirubin Negative Urine Urobilinogen Negative Ur Leukocyte Esterase Negative Urine WBC (Auto) 1-5 Urine RBC (Auto) 10-30 H U Hyaline Cast (Auto) 1-5 U Epithel Cells (Auto) >30 H Urine Bacteria (Auto) Negative Salicylates Urine Opiates Screen Neg Ur Methadone, Qual Neg Acetaminophen Urine Barbiturates Neg Ur Phencyclidine (PCP) Neg U Amphetamin/Meth Scrn Neg MDMA (Ecstasy) Screen Neg U Benzodiazepines Scrn Neg Ur Cocaine Metabolite Neg U Marijuana (THC) Screen Pos H U Marijuana THC Carboxy 55 H Drug Screen Comment SEE NOTE Ethyl Alcohol mg/dL SARS-CoV-2, RNA, NAAT 11/03/22 11/03/22 11/03/22 22:50 23:06 23:06 WBC 6.44 RBC 5.17 Hgb 13.3 Hct 42.2 MCV 81.6 MCH 25.7 MCHC 31.5 L RDW Std Deviation 39.8 RDW Coeff of Sky 13.5 Plt Count 259 MPV 10.6 Immature Gran % (Auto) 0.2 Neut % (Auto) 49.7 Lymph % (Auto) 35.6 [place] % (Auto) 9.9 Eos % (Auto) 4.3 Baso % (Auto) 0.3 Neut # (Auto) 3.20 Lymph # (Auto) 2.29 [place] # (Auto) 0.64 H Eos # (Auto) 0.28 Baso # (Auto) 0.02 Immature Gran # (Auto) 0.01 PT 10.9 INR 1.0 APTT 27.6 PTT Ratio 1.0 Sodium Potassium Chloride Carbon Dioxide Anion Gap BUN Creatinine Est Cr Clr Drug Dosing Est GFR ( Amer) Est GFR (Non-Af Amer) BUN/Creatinine Ratio Glucose Calcium Magnesium Total Bilirubin AST ALT Alkaline Phosphatase Total Protein Albumin Globulin Albumin/Globulin Ratio HCG, Qual Urine Color Urine Appearance Urine pH Ur Specific Baldwin Urine Protein Urine Glucose (UA) Urine Ketones Urine Blood Urine Nitrite Urine Bilirubin Urine Urobilinogen Ur Leukocyte Esterase Urine WBC (Auto) Urine RBC (Auto) U Hyaline Cast (Auto) U Epithel Cells (Auto) Urine Bacteria (Auto) Salicylates Urine Opiates Screen Ur Methadone, Qual Acetaminophen Urine Barbiturates Ur Phencyclidine (PCP) U Amphetamin/Meth Scrn MDMA (Ecstasy) Screen U Benzodiazepines Scrn Ur Cocaine Metabolite U Marijuana (THC) Screen U Marijuana THC Carboxy Drug Screen Comment Ethyl Alcohol mg/dL SARS-CoV-2, RNA, NAAT NEGATIVE 11/03/22 11/03/22 11/03/22 23:06 23:06 23:06 WBC RBC Hgb Hct MCV MCH MCHC RDW Std Deviation RDW Coeff of Sky Plt Count MPV Immature Gran % (Auto) Neut % (Auto) Lymph % (Auto) [place] % (Auto) Eos % (Auto) Baso % (Auto) Neut # (Auto) Lymph # (Auto) [place] # (Auto) Eos # (Auto) Baso # (Auto) Immature Gran # (Auto) PT INR APTT PTT Ratio Sodium 135 L Potassium 3.6 Chloride 103 Carbon Dioxide 27 Anion Gap 5 BUN 10 Creatinine 0.82 Est Cr Clr Drug Dosing 120.9 Est GFR ( Amer) 119.4 Est GFR (Non-Af Amer) 103.0 BUN/Creatinine Ratio 12.2 Glucose 85 Calcium 9.2 Magnesium 1.8 Total Bilirubin 0.3 AST 17 ALT 8 Alkaline Phosphatase 45 Total Protein 7.8 Albumin 4.0 Globulin 3.8 Albumin/Globulin Ratio 1.1 HCG, Qual Negative Urine Color Urine Appearance Urine pH Ur Specific Baldwin Urine Protein Urine Glucose (UA) Urine Ketones Urine Blood Urine Nitrite Urine Bilirubin Urine Urobilinogen Ur Leukocyte Esterase Urine WBC (Auto) Urine RBC (Auto) U Hyaline Cast (Auto) U Epithel Cells (Auto) Urine Bacteria (Auto) Salicylates < 3.0 L Urine Opiates Screen Ur Methadone, Qual Acetaminophen < 3 L Urine Barbiturates Ur Phencyclidine (PCP) U Amphetamin/Meth Scrn MDMA (Ecstasy) Screen U Benzodiazepines Scrn Ur Cocaine Metabolite U Marijuana (THC) Screen U Marijuana THC Carboxy Drug Screen Comment Ethyl Alcohol mg/dL SARS-CoV-2, RNA, NAAT 11/03/22 11/04/22 23:06 01:30 WBC RBC Hgb Hct MCV MCH MCHC RDW Std Deviation RDW Coeff of Sky Plt Count MPV Immature Gran % (Auto) Neut % (Auto) Lymph % (Auto) [place] % (Auto) Eos % (Auto) Baso % (Auto) Neut # (Auto) Lymph # (Auto) [place] # (Auto) Eos # (Auto) Baso # (Auto) Immature Gran # (Auto) PT INR APTT PTT Ratio Sodium Potassium Chloride Carbon Dioxide Anion Gap BUN Creatinine Est Cr Clr Drug Dosing Est GFR ( Amer) Est GFR (Non-Af Amer) BUN/Creatinine Ratio Glucose Calcium Magnesium Total Bilirubin AST ALT Alkaline Phosphatase Total Protein Albumin Globulin Albumin/Globulin Ratio HCG, Qual Urine Color Urine Appearance Urine pH Ur Specific Baldwin Urine Protein Urine Glucose (UA) Urine Ketones Urine Blood Urine Nitrite Urine Bilirubin Urine Urobilinogen Ur Leukocyte Esterase Urine WBC (Auto) Urine RBC (Auto) U Hyaline Cast (Auto) U Epithel Cells (Auto) Urine Bacteria (Auto) Salicylates Urine Opiates Screen Ur Methadone, Qual Acetaminophen < 3 L Urine Barbiturates Ur Phencyclidine (PCP) U Amphetamin/Meth Scrn MDMA (Ecstasy) Screen U Benzodiazepines Scrn Ur Cocaine Metabolite U Marijuana (THC) Screen U Marijuana THC Carboxy Drug Screen Comment Ethyl Alcohol mg/dL < 10.0 SARS-CoV-2, RNA, NAAT Hospital Course (1) Depression, unspecified: (2) Suicide attempt by drug ingestion: (3) Major depressive disorder with current active episode: Plan 11/05/2022: Start escitalopram 10mg qd. 11/04/2022: The patient [facility]) on q15 min checks (behavioral with suicide precautions) for safety. The patient will participate in group, recreational, and milieu therapies and will be offered additional individual and family sessions as clinically appropriate. -Consider SSRI vs Wellbutrin initiation tomorrow morning after she decides what medication she would like to try -Confirmed via [facility] pharmacy prior to admission topirimate 75mg daily for migraines, last filled 04/2023 for 90 tabs; states she hasn't been taking this recently Mental Health & Subst Abuse Tx Psychiatrist Psychiatric Appointment Comment: [employer] to coordinate referral for psychiatry and therapy. Therapist Name of Therapist: Jamie Rivero Therapist's Therapy Appointment Comment: Please call Josefa directly after discharge. Therapist Release of Information: Obtained, Reviewed and Signed Belt Loop Cutter Name of Belt Loop Cutter: Student Care and Advocacy - Jocelyn Hassan Phone Number for Belt Loop Cutter: [phone] Date of Appointment with Belt Loop Cutter: 11/10/22 Time of Appointment with Belt Loop Cutter: 1:00 PM Case Management Appointment Comment: Please check [facility] email for Zoom meeting invitation. Post Discharge Appointments Primary Care Physician Name Of Family Doctor/PCP: Dr. Comer Provider Appointment Comment: Please follow-up with your family doctor as needed. Contact Information Discharge Discharge Address: [address] [place] [address] Discharge Plan Discharge Items Patient Disposition: Home - Self-Care Reason For Visit: MAJOR DEPRESSIVE DISORDER Discharge Diagnosis: Major Depressive Disorder Activity: Resume your previous activity Non-emergency contact: Primary Care Provider Call non-emergency contact if: you have any medication questions and your symptoms worsen Follow-up/Referrals: PCP,NO [Primary Care Provider] - Diet: Regular Addtl Attending Provider Instructions: Optional mobile apps: -Suicide safety plan -Virtual Hope Box SPECIAL CARE INSTRUCTIONS: 1. Follow through with your scheduled aftercare appointments. If unable to keep an appointment, please call to reschedule. 2. Take your medication only as prescribed. Medication should not be changed or stopped without the approval of your doctor. In the event of worsening symptoms or concerns about side effects, contact your doctor immediately. 3. Utilize new healthy coping skills, anger management skills, and stress management skills learned during your hospitalization. Journal feelings and process them with a support person. Identify stressors or situations that may result in relapse, deterioration or inappropriate behaviors and develop a plan to deal with those issues. 4. If your coping skills are ineffective and you are in crisis, contact your outpatient providers for direction. If unable to reach your providers, please call the [facility] CRISIS LINE AT , go to the [facility] walk-in center at [address] [place] [address] A, Seltzer, or go to the closest Emergency Room. 5. Avoid alcohol and un-prescribed drugs. 6. You have been provided with the Mental Health Advance Directives Pamphlet for your review. 7. Your condition is stable for discharge to outpatient level of care, but recovery is an ongoing process. Ifthoughts to harm yourself or others return, follow the safety plan developed during your stay. Planning for a safe return home includes securing weapons. Our treatment team recommends weaponsbe removed from the home until your outpatient provider reassesses your progress. In rare cases where the items themselvescannot be removed, guns and ammunitionshould be secured separatelyand keys stored by a reliable personoutside of the home. If you were admitted on an involuntary commitment, the police or other legal authorities may be involved in this process. AFTERCARE APPOINTMENTS: * Please call your insurance company prior to your scheduled appointment to confirm your aftercare providers are covered. Take your insurance information to your appointments. WHO TO CALL AND WHEN: Medical Emergencies: For questions or emergencies related to your hospital stay, please contact the Inpatient Behavioral Health Unit at [phone]. [employer] is on-call 26/01 for the Behavioral Health Unit for emergencies [facility] Crisis and Suicide Hotline: 988 Juanis: For residents of [facility], call or Apto At any time you feel your situation is an emergency, you may also call 911 immediately. Pending Studies at Discharge: No Stand-Alone Forms: My [facility] Medications and DC Order Prescriptions: New escitalopram oxalate 10 mg Tablet 10 mg PO QAM 30 Days Qty: 30 0RF Discharge Orders: Discharge Order (Routine); Ordered 11/06/22 Ordered By: Saige Up Admission Data Admit Date/Time: 11/04/22 09:33 Attending Provider: Saige Up Admit Provider: Saige Up Primary Care Provider: PCP,NO Other Interventions: Discharge Summary Assessment (RN) Last Done: 11/06/22 15:00 PSY Interdisciplinary Discharge Planning Last Done: 11/06/22 15:03 Coding Level of Care Code 76202 D/C day mgmt > 30 min Diagnoses Depression, unspecified F32.A Suicide attempt by drug ingestion T50.902A Major depressive disorder with current active episode F32.9 Time Spent (min) 45
== END 2022-11-06 15:38 | disposition home or self-care (01) | DRG 881 ==
LOC: ED 22:00 → 3S 11-04 11:44